=== PATIENT | female | born 1970 | race American Indian/Alaskan Native ===

== ENCOUNTER 2017-08-07 20:27 | Emergency (ER) | payer MEDICARE, MEDICAID ==
[~2017-08-07] VITALS: Ht 175.3 cm; Wt 107.3 kg
[~2017-08-07 20:27] MED LIST: AMIT100T2 PO; AMIT10TA10; ASPI-611 PO; ASPI81TA46; CEPH-571 PO; ERGO500014 PO; ESCI10TA54 PO; FERR325T39 PO; FURO-149 PO; GABA-347 PO; INSU100C4 SQ; INSU100V9 SQ; LAMO200T2 PO; LISI-604 PO; LORA1TAB PO; METOPRO; NORCO10T; NORCO10T PO; PANT40SU2 PO; PRAV40TA3 PO; ativan; benadryl; gabapentin; lexapro
[2017-08-07 23:50] VITALS: BP 140/88
== END 2017-08-07 23:50 | disposition home or self-care (01) ==
LOC: ER 20:27
DX: R60.0 Localized edema (principal); E11.42 Type 2 diabetes mellitus with diabetic polyneuropathy; N18.6 End stage renal disease; E11.22 Type 2 diabetes mellitus with diabetic chronic kidney disease; E11.319 Type 2 diabetes mellitus with unspecified diabetic retinopathy without macular edema; E78.00 Pure hypercholesterolemia, unspecified; G89.29 Other chronic pain; I12.0 Hypertensive chronic kidney disease with stage 5 chronic kidney disease or end stage renal disease; Z86.73 Personal history of transient ischemic attack (TIA), and cerebral infarction without residual deficits; Z88.5 Allergy status to narcotic agent; Z88.6 Allergy status to analgesic agent; Z98.890 Other specified postprocedural states; Z79.4 Long term (current) use of insulin; Z79.899 Other long term (current) drug therapy; Z99.2 Dependence on renal dialysis; Z89.511 Acquired absence of right leg below knee; Z79.82 Long term (current) use of aspirin
CPT/HCPCS: 99284